=== PATIENT | female | born 1950 | race Caucasian/White ===

== ENCOUNTER → 2017-09-04 | Day surgery (SDC) | payer BC, MEDICARE ==
[2017-09-01 16:55] LABS: BASOPHILS # (AUTO) 0.1 (0.0-0.1); BASOPHILS % 0.7 % (0.0-1.0); EOSINOPHILS # (AUTO) 0.2 (0.0-0.4); EOSINOPHILS % 2.9 % (0.0-6.0); HEMOGLOBIN 13.4 g/dL (12.0-16.0); LYMPHOCYTES # (AUTO) 1.7 (1.0-3.2); MEAN CORPUSCULAR HEMOGLOBIN 30.9 pg (28-32); MEAN CORPUSCULAR HGB CONC 33.5 g/dL (31-35); MEAN CORPUSCULAR VOLUME 92.2 fL (81-99); MONOCYTES # (AUTO) 0.5 (0.2-0.8); MONOCYTES % 6.5 % (4.4-11.3); NEUTROPHILS # (AUTO) 5.8 (2.1-6.9); NEUTROPHILS % 69.8 % (38.7-80.0); PLATELET COUNT 210 x10e3/uL (140-360); RED BLOOD COUNT 4.34 x10e6/uL (3.6-5.1); RED CELL DISTRIBUTION WIDTH 13.3 % (11.7-14.4)
[2017-09-01 17:02] LABS: INR 0.97; PARTIAL THROMBOPLASTIN TIME 27.2 seconds (23.8-35.5); PROTHROMBIN TIME 12.1 seconds (11.9-14.5)
[2017-09-01 17:11] LABS: ALBUMIN 3.9 g/dL (3.5-5.0); ALBUMIN/GLOBULIN RATIO 1.3 (0.8-2.0); CALCIUM 9.4 mg/dL (8.4-10.2); CREATININE, SERUM 0.93 mg/dL (0.57-1.11)
--- NOTE | 2017-09-01 17:13 | Diagnostic Imaging Report ---
PROCEDURE: Frontal and lateral views of the chest. COMPARISON: [facility], , CHEST 2 VIEWS, 03/24/2016, 10:40. INDICATIONS: PRE-OP FINDINGS: Lines/tubes: None. Lungs: The lungs are well inflated and grossly clear. There is no evidence of pneumonia or pulmonary edema. Pleura: There is no pleural effusion or pneumothorax. Heart and mediastinum: The heart and the mediastinum are normal. Bones: No acute bony abnormality. IMPRESSION: 1. No acute cardiopulmonary abnormalities. Nathan Maria M.D. Dictated by: Nathan Maria M.D. on 09/01/2017 at 17:13 Electronically approved by: Nathan Maria M.D. on 09/01/2017 at 17:13
[~2017-09-04] MED LIST: AMBIEN5 MG PO; BACLOFEN10 MG PO; BACTRIM DS TAB1 EACH PO; BELSOMRA PO; CALTRATE 600 W1 EACH PO; CRESTOR10 MG PO; CYANOCOBAL1000 MCG/M IV; DEXAMETHASONE SOD PHOS INJ 4 MG/ML VIAL ONE; DUCOLAX PO; FAMOTIDINE 20 MG/2 ML VIAL IV ONE; FENTANYL CITRATE/PF 100MCG/2 ML INJ ONE; FISH OIL 1,0001 EAC1 PO; FUROSEMIDE20 MG PO; GABAPENTIN300 MG PO; GABAPENTIN400 MG PO; GEMFIBROZIL600 MG PO; INVOKANA PO; LIDOCAINE HCL 2% LOCAL INJ 5 ML SDV VIAL INJ ONE; LINESS PO; LINZESS PO; METFORMIN HCL500 MG PO; METOPROLOL TART25 MG PO; MIDAZOLAM HCL 2 MG/2 ML VIAL ONE; MORPHINE SULFATE 5 MG/ML VIAL ONE; NEOMYCIN/POLYMYX/BACITR OINT 0.9 GM PKT ONE; NITROGLYCERIN 0.4 MG SUBL ONE; NORCO 7.5-3251 EACH PO; NORTRIPTYLINE H10 MG PO; OMEPRAZOLE40 MG PO; ONDANSETRON HCL INJ 2 MG/ML VIAL ONE; PROMETHAZINE HC25 M1 PO; PROPOFOL IV EMULSION 10 MG/ML 20 ML VIAL ONE; SEVOFLURANE INHAL SOLN 250 ML PEN BTL ONE; SODIUM CHLORIDE 0.9% IV STA; STOOL SOFTENER PO; SULFAMETHOXAZOLE IV STA; TRIMETHOPRIM IV STA; ULTRAM 50MG50 MG PO; VALTREX500 MG PO; VITAMIN B-12 INJ
--- OUTSIDE RECORDS SUMMARY | 2017-09-04 10:56 | XMS REPORT | Clinical Summary ---
Author Author [facility] Organization [facility] Address Unknown Phone Unavailable Care Team Providers Care Fashion Merchandiser Name Role Phone Valarie Jack MD PCP Allergies Active Allergy Reactions Severity Noted Date Comments Prochlorperazine Other (See Comments) 05/05/2016 Loose the vision Fentanyl Other (See Comments) 06/03/2017 Palpitations anxiety Cephalexin Rash Low 05/05/2016 Levofloxacin Swelling 05/05/2016 Tramadol Hives 05/28/2017 Azithromycin Hives Medium 02/11/2017 Current Medications Prescription Sig. Disp. Refills Start End Date Status Date valACYclovir (VALTREX) Take 500 mg by mouth 04/29/20 Active 500 MG tablet daily. 16 omeprazole (PriLOSEC) 40 Take 40 mg by mouth 04/25/20 Active MG capsule daily. 16 nortriptyline (PAMELOR) Take 50 mg by mouth 04/28/20 Active 10 MG capsule nightly. 16 furosemide (LASIX) 20 MG Take 20 mg by mouth daily 03/22/20 Active tablet as needed (swelling). 16 rosuvastatin (CRESTOR) 10 Take 10 mg by mouth 04/25/20 Active MG tablet nightly. 16 baclofen (LIORESAL) 10 MG Take 20 mg by mouth 3 Active tablet (three) times a day as needed for muscle spasms. suvorexant (BELSOMRA) 20 Take 20 mg by mouth Active mg tablet nightly. cyanocobalamin (VITAMIN Inject 1,000 mcg into the Active B-12) 1,000 mcg/mL shoulder, thigh, or injection buttocks every 30 (thirty) days. LINZESS 290 mcg capsule Take 290 mcg by mouth 07/10/19 Active daily before breakfast. 17 gabapentin (NEURONTIN) Take 800 mg by mouth 3 08/25/19 Active 800 mg tablet (three) times a day as 17 needed (back pain). diclofenac (VOLTAREN) 1 % Apply topically 2 (two) 07/15/19 Active gel times a day as needed 17 (inflammation). INVOKANA 300 mg tablet Take 300 mg by mouth 11/05/19 Active daily. 17 fluconazole (DIFLUCAN) 12/14/19 Active 150 MG tablet 17 ONETOUCH ULTRASOFT 04/28/20 Active lancets 17 acetaminophen-codeine Take 1-2 tablets by mouth 15 tablet 0 05/28/20 05/28/20 Active (TYLENOL WITH CODEINE #3) every 6 (six) hours as 17 18 300-30 mg per tablet needed for moderate pain. celecoxib (CeleBREX) 200 Take 200 mg by mouth Active MG capsule daily. dicyclomine (BENTYL) 10 Take 10 mg by mouth 4 Active MG capsule (four) times a day before meals and nightly. gabapentin (NEURONTIN) 04/29/20 02/04/20 Discontin 300 MG capsule 16 17 ued traMADol (ULTRAM) 50 mg 03/03/20 02/04/20 Discontin tablet 16 17 ued metoprolol tartrate Take 25 mg by mouth 04/25/20 06/04/20 Discontin (LOPRESSOR) 25 MG tablet daily. 16 17 ued JANUVIA 100 mg tablet 05/01/20 02/04/20 Discontin 16 17 ued celecoxib (CeleBREX) 200 07/21/19 09/25/19 Discontin MG capsule 17 17 ued HYDROcodone-acetaminophen Take 1 tablet by mouth 60 tablet 0 08/13/19 09/11/19 (NORCO) 5-325 mg per every 6 (six) hours as 17 17 tablet needed for moderate pain for up to 80 doses. Max Daily Amount: 4 tablets acetaminophen-codeine 09/06/19 09/25/19 Discontin (TYLENOL WITH CODEINE #4) 17 17 ued 300-60 mg per tablet celecoxib (CeleBREX) 200 Take 1 capsule (200 mg 30 capsule 1 09/25/19 10/25/19 MG capsule total) by mouth daily for 17 17 30 doses. HYDROcodone-acetaminophen Take 1 tablet by mouth 09/25/19 10/10/19 Discontin (NORCO) 7.5-325 mg per every 6 (six) hours as 17 17 ued tablet needed for moderate pain for up to 80 doses. Max Daily Amount: 4 tablets HYDROcodone-acetaminophen 10/02/19 02/04/20 Discontin (NORCO) 10-325 mg per 17 17 ued tablet nystatin-triamcinolone 12/14/19 02/12/20 Discontin (MYCOLOG II) 100,000-0.1 17 17 ued unit/g-% cream promethazine (PHENERGAN) 25 mg every 6 (six) hours 01/21/20 06/04/20 Discontin 25 MG tablet as needed for nausea 17 17 ued (with vertigo). sulfamethoxazole-trimetho 12/12/19 02/12/20 Discontin prim (BACTRIM DS) 800-160 17 17 ued mg per tablet clindamycin (CLEOCIN HCL) Take 1 capsule (300 mg 40 capsule 0 02/25/20 Discontin 300 MG capsule total) by mouth 4 (four) 17 17 ued times a day for 10 days. sulfamethoxazole-trimetho Take 1 tablet by mouth 2 10 tablet 0 03/01/20 prim (BACTRIM DS) 800-160 (two) times a day for 5 17 17 mg per tablet days. smx-tmp DS (BACTRIM) 800-160 mg tabs (1tab q12 D10) HYDROcodone-acetaminophen 03/10/20 04/03/20 Discontin (NORCO) 10-325 mg per 17 17 ued tablet oxyCODone-acetaminophen TK 1 TO 2 TS PO Q 4 TO 6 0 03/09/20 05/05/20 Discontin (PERCOCET) 5-325 mg per H PRN P 17 17 ued tablet oxyCODone-acetaminophen Take 1 tablet by mouth 06/04/20 Discontin (PERCOCET) 5-325 mg per every 4 (four) hours as 17 ued tablet needed for moderate pain. lisinopril Take 1 tablet (2.5 mg 30 tablet 3 06/05/20 07/05/19 (PRINIVIL,ZESTRIL) 2.5 mg total) by mouth daily for 17 18 tablet 30 days. metoprolol tartrate Take 1 tablet (25 mg 60 tablet 3 06/04/20 Discontin (LOPRESSOR) 25 mg tablet total) by mouth 2 (two) 17 17 ued times a day for 30 days. spironolactone Take 1 tablet (25 mg 60 tablet 1 06/04/20 06/04/20 Discontin (ALDACTONE) 25 MG tablet total) by mouth 2 (two) 17 17 ued times a day for 30 days. ipratropium-albuterol Inhale 2 puffs every 4 4 g 0 06/04/20 (COMBIVENT RESPIMAT) (four) hours as needed 17 18 20-100 mcg/actuation mist for wheezing for up to 30 inhaler days. metoprolol tartrate Take 0.5 tablets (12.5 mg 60 tablet 3 06/04/20 07/04/19 (LOPRESSOR) 25 mg tablet total) by mouth 2 (two) 17 18 times a day for 30 days. spironolactone Take 0.5 tablets (12.5 mg 60 tablet 1 06/04/20 (ALDACTONE) 25 MG tablet total) by mouth 2 (two) 17 18 times a day for 30 days. Active Problems Problem Noted Date Accidental overdose 05/31/2017 Trigger finger, right ring finger 02/03/2017 Status post arthroscopy of left knee 10/09/2016 Status post total right knee replacement using cement 07/18/2016 Chronic pain of left knee 05/05/2016 Resolved Problems Problem Noted Date Resolved Date Trigger finger of left thumb 02/03/2017 05/05/2017 Encounters Date Type Specialty Care Team Description 06/01/2017 Procedure Pass General Internal Medicine 06/01/2017 Procedure Pass General Internal Medicine 06/01/2017 Procedure Pass Procedural Cardiology 06/01/2017 Surgery Procedural Cardiology Kelly Oneal MD Cv left heart cath w lv gram cors [73881 (CPT )] 05/31/2017 [facility] General Internal Medicine Pranay Nealrandee Edge, Accidental overdose, - Encounter DO initial encounter 06/04/2017 Lisa Hassan MD (Primary Dx); Acute respiratory failure, unspecified whether with hypoxia or hypercapnia 05/28/2017 Emergency Emergency Medicine Kyle Ni MD Back pain with sciatica (Primary Dx) 05/05/2017 Office Visit Orthopedic Surgery Shelby Alvarenga Trigger finger, right MD Amy ring finger (Primary Dx) 04/03/2017 Office Visit Orthopedic Surgery Shelby Alvarenga Trigger finger, right MD Amy ring finger (Primary Dx) 03/18/2017 Office Visit Orthopedic Surgery Shelby Alvarenga Trigger finger, right MD Amy ring finger (Primary Dx) 03/10/2017 Telephone Orthopedic Surgery Shelby Alvarenga MD 03/09/2017 [facility] General Surgery Shelby Alvarenga Encounter MD Amy 03/09/2017 Anesthesia General Surgery Jeanine Barragan MD Event 03/09/2017 Procedure Pass General Surgery 03/09/2017 Surgery General Surgery Shelby Alvarenga PARTIAL EXCISION FLEXOR MD Amy TENDON RING FINGER-RIGHT 03/03/2017 Office Visit Orthopedic Surgery Shelby Alvarenga Trigger finger, right MD Amy ring finger (Primary Dx) 02/24/2017 Emergency Emergency Medicine Anne Marie Montoya MD Visit for suture removal (Primary Dx); Cellulitis of hand 02/17/2017 Refill Orthopedic Surgery Shelby Alvarenga MD 02/17/2017 Telephone Orthopedic Surgery Shelby Alvarenga MD 02/16/2017 [facility] General Surgery Shelby Alvarenga Encounter MD Amy 02/16/2017 Anesthesia General Surgery Tisha Drake MD 02/16/2017 Procedure Pass General Surgery 02/16/2017 Surgery General Surgery Shelby Alvarenga RING FINGER A-1 GRACIA MD Amy RELEASE-RIGHT THUMB A-1 GRACIA RELEASE-LEFT 02/11/2017 Hospital Radiology Shelby Alvarenga Preop testing Encounter MD Amy 02/11/2017 Pre-Admit Pre-Admission Testing Preop testing (Primary Testing Dx) Appointment 02/03/2017 Office Visit Orthopedic Surgery Shelby Alvarenga Left hand pain (Primary MD Amy Dx); Trigger finger of left thumb; Trigger finger, right ring finger 11/26/2016 Office Visit Orthopedic Surgery Gennaro Kamara MD Status post arthroscopy of left knee (Primary Dx) 10/27/2016 Office Visit Orthopedic Surgery Gennaro Kamara MD Status post arthroscopy of left knee (Primary Dx) 10/09/2016 Office Visit Orthopedic Surgery Gennaro Kamara MD Status post total right knee replacement using cement (Primary Dx); Status post arthroscopy of left knee 10/01/2016 [facility] General Surgery Gennaro Kamara MD Encounter 09/29/2016 Orders Only General Surgery Gennaro Kamara MD 09/25/2016 Office Visit Orthopedic Surgery Gennaro Kamara MD Status post total right knee replacement using cement (Primary Dx) 09/25/2016 Prep for Orthopedic Surgery Gennaro Kamara MD Surgery 09/24/2016 Orders Only Orthopedic Surgery Gennaro Kamara MD 09/12/2016 Office Visit Orthopedic Surgery Gennaro Kamara MD Chronic pain of left knee (Primary Dx); Status post total right knee replacement using cement 09/10/2016 [facility] Radiology Gennaro Kamara MD Encounter 09/08/2016 Office Visit Orthopedic Surgery Gennaro Kamara MD Status post total right knee replacement using cement (Primary Dx); Chronic pain of left knee after 09/03/2016 Family History Medical History Relation Name Comments Cancer Father Stroke Mother Relation Name Status Comments Father Mother Social History Tobacco Use Types Packs/Day Years Used Date Former Smoker Cigarettes 0.5 15 Smokeless Tobacco: Former Quit: 2012 User Alcohol Use Drinks/Week oz/Week Comments No Sex Assigned at Date Recorded Not on file Last Filed Vital Signs Vital Sign Reading Time Taken Blood Pressure 107/60 06/04/2017 10:51 AM [employer] Pulse 96 06/04/2017 10:51 AM [employer]IC[employer] Temperature 36.1 C (96.9 F) 06/04/2017 7:06 AM [employer] OFFICER Respiratory Rate 19 06/04/2017 10:51 AM [employer] ACT OFFICER Oxygen Saturation 95% 06/04/2017 10:51 AM [employer] ACT OFFICER Inhaled Oxygen - - Concentration Weight 90.3 kg (199 lb 1.2 oz) 06/01/2017 12:45 AM [employer]ICER Height 165.1 cm (5' 5") 05/31/2017 8:34 PM [employer] ACT OFFICER Body Mass Index 33.13 06/01/2017 12:45 AM [employer]ITY [employer]MENT ACT OFFICER Plan of Treatment Health Maintenance Due Date Last Done Comments COLONOSCOPY 2000 ZOSTER VACCINE 2010 PNEUMOCOCCAL 10/25/2015 POLYSACCHARIDE VACCINE AGE 65 AND OVER PNEUMOCOCCAL-13 10/25/2015 INFLUENZA VACCINE 01/27/2017 MAMMOGRAM 04/19/2017 04/19/2015, 01/04/2010, 05/19/2008 Implants Implanted Type Area Head Men[employer]S Tennis Coach Device Expiration Model / Identifier Date Serial / Lot Device Vasclr Clsr Baln Cath 10ml Cardiovasc N/A: N/A ACCESS CLOSURE 02/26/2019 [id number] / Lkng Syr 5fr [employer] / [id number] Implants [id number] Implanted: 06/01/2017 (Quantity not on file) Procedures Procedure Name Priority Date/Time Associated Diagnosis Comments CV LEFT HEART CATH LV Routine 06/01/2017 GRAM WITH CORS 5:19 AM COMMUNITY RE[employer]MENT ACT OFFICER MA CRITICAL CARE, E/M Routine 06/01/2017 Results for this 30-74 MINUTES 12:22 AM COMM[employer]ITY RE[employer]MENT ACT OFFICER procedure are in the results section. INTUBATION Routine 06/01/2017 Results for this 12:22 AM COMM[employer]ITY [employer]MENT ACT OFFICER procedure are in the results section. PARTIAL EXCISION FLEXOR 03/09/2017 Trigger finger, right TENDON RING FINGER-RIGHT 9:35 AM CDT ring finger Special Needs HAND TABLE26 JOSÉ WIREHAND & FOOT SETPRE OP DONE 02/11 SUTURE REMOVAL Routine 02/24/2017 Results for this 2:16 PM CDT procedure are in the results section. SUTURE REMOVAL Routine 02/24/2017 Results for this 2:16 PM CDT procedure are in the results section. RING FINGER A-1 GRACIA 02/16/2017 Trigger finger of left RELEASE-RIGHT THUMB A-1 8:15 AM CDT thumb GRACIA RELEASE-LEFT Special Needs HAND TABLEBMI:3 4.91 after 09/03/2016 Results * Estimated GFR (06/04/2017 12:17 PM) Only the most recent of 9 results within the time period is included. Component Value Ref Range GFR Non Af Amer 72 mL/min/1.73 m2 GFR Af Amer 87 mL/min/1.73 m2 Comment: Chronic kidney disease: <60 mL/min/1.73m2 Kidney failure: <15 mL/min/1.73m2 The estimated GFR is calculated from the IDMS-traceable Modification of Diet in Renal Disease Equation. The accuracy of the calculation is poor when the creatinine is normal. Calculated values >90 mL/min/1.73m2 are not reported. This equation has not been validated in children (<18 years), women, the elderly (>70 years), or ethnic groups other than Caucasians and Americans. Specimen Performing Laboratory Plasma specimen [facility] [address] [place] [address] * Magnesium level (06/04/2017 12:17 PM) Only the most recent of 4 results within the time period is included. Component Value Ref Range Magnesium 2.00 1.60 - 2.40 mg/dL Specimen Performing Laboratory Plasma specimen [facility] [address] [place] [id number] * Basic metabolic panel (06/04/2017 12:17 PM) Only the most recent of 2 results within the time period is included. Component Value Ref Range Sodium 139 135 - 150 mEq/L Potassium 3.8 3.5 - 5.0 mEq/L Chloride 103 100 - 109 mEq/L CO2 27 24 - 32 mmol/L Anion gap 9 7 - 15 mEq/L Comment: Starting from September , anion gap calculation no longer incorporates potassium. Please note the change. BUN 28 (H) 7 - 18 mg/dL Creatinine 0.8 0.8 - 1.5 mg/dL Glucose 113 (H) 65 - 100 mg/dL Calcium 9.4 8.6 - 10.7 mg/dL Specimen Performing Laboratory Plasma specimen [facility] [address] [place] [address] * POC glucose (06/04/2017 11:15 AM) Only the most recent of 22 results within the time period is included. Component Value Ref Range POC glucose 145 (H) 65 - 100 mg/dL Comment: Meter ID: [id number] Balloon Sander: Rasheeda Palacios Specimen Performing Laboratory [facility] [address] [place] [address] * Phosphorus level (06/04/2017 6:45 AM) Only the most recent of 4 results within the time period is included. Component Value Ref Range Phosphorus 3.4 2.5 - 4.5 mg/dL Specimen Performing Laboratory Plasma specimen [facility] [address] [place] [address] * Ionized calcium (06/04/2017 6:45 AM) Only the most recent of 4 results within the time period is included. Component Value Ref Range pH 7.44 Ionized calcium 1.16 1.11 - 1.32 mmol/L Specimen Performing Laboratory Plasma specimen [facility] [address] [place] [address] * Smear review (06/03/2017 5:16 AM) Only the most recent of 3 results within the time period is included. Component Value Ref Range Platelet slide review Dino adequate Anisocytosis slight Polychromasia slight Ovalocytes slight Specimen Performing Laboratory [facility] [address] [place] [address] * CBC with platelet and differential (06/03/2017 5:16 AM) Only the most recent of 8 results within the time period is included. Component Value Ref Range WBC 8.6 4.2 - 11.0 k/uL RBC 4.44 4.04 - 5.86 m/uL HGB 13.2 11.5 - 15.3 g/dL HCT 40.8 34.0 - 45.0 % MCV 91.9 80.0 - 98.0 fL MCH 29.7 27.0 - 34.0 pg MCHC 32.4 31.5 - 36.5 g/dL RDW - SD 49.6 37.0 - 51.0 fL MPV 10.5 (H) 7.4 - 10.4 fL Platelet count 163 150 - 400 k/uL Nucleated RBC 0.00 /100 WBC Neutrophils 67.6 (H) 36.0 - 66.0 % Lymphocytes 21.5 (L) 24.0 - 44.0 % Monocytes 8.5 (H) 0.0 - 6.0 % Eosinophils 1.2 0.0 - 6.0 % Basophils 0.7 0.0 - 1.2 % Immature granulocytes 0.5 0.0 - 1.0 % Specimen Performing Laboratory Blood [facility] [address] [place] [address] * Hepatic function panel (06/03/2017 5:16 AM) Component Value Ref Range Albumin 3.3 3.2 - 5.0 g/dL Total bilirubin 0.7 0.2 - 1.2 mg/dL Bilirubin direct 0.1 0.0 - 0.4 mg/dL Alkaline phosphatase 95 30 - 120 U/L Protein 6.7 6.3 - 8.2 g/dL ALT 44 30 - 65 U/L AST 41 (H) 15 - 37 U/L Specimen Performing Laboratory Plasma specimen [facility] [address] [place] [address] * PV duplex venous upper extremity (06/02/2017 5:57 PM) Specimen Performing Laboratory [facility] [address] [place] [address] Narrative EXAMINATION:US DUPLEX VENOUS UPPER EXTREMITY LEFT CLINICAL HISTORY:pain and swelling COMPARISON:None. TECHNIQUE:Grayscale, color Doppler, and spectral waveform analysis of the left upper extremity deep venous system was performed. FINDINGS: The left internal jugular vein demonstrates normal flow and compressibility. The left subclavian, axillary, brachial, basilic, cephalic, and forearm veins reveal no evidence of thrombosis. The veins demonstrate normal Doppler flow and normal compressibility. The right subclavian vein is patent. IMPRESSION: Normal left upper extremity venous Doppler examination. No sonographic evidence of deep venous thrombosis of the left upper extremity. [id number] Procedure Note Hm Interface, Radiology Results Incoming - 06/02/2017 6:08 PM [employer] ACT OFFICER EXAMINATION: US DUPLEX VENOUS UPPER EXTREMITY LEFT CLINICAL HISTORY: pain and swelling COMPARISON: None. TECHNIQUE: Grayscale, color Doppler, and spectral waveform analysis of the left upper extremity deep venous system was performed. FINDINGS: The left internal jugular vein demonstrates normal flow and compressibility. The left subclavian, axillary, brachial, basilic, cephalic, and forearm veins reveal no evidence of thrombosis. The veins demonstrate normal Doppler flow and normal compressibility. The right subclavian vein is patent. IMPRESSION: Normal left upper extremity venous Doppler examination. No sonographic evidence of deep venous thrombosis of the left upper extremity. [id number] * Comprehensive metabolic panel (06/02/2017 4:34 AM) Only the most recent of 7 results within the time period is included. Component Value Ref Range Sodium 140 135 - 150 mEq/L Potassium 3.5 3.5 - 5.0 mEq/L Chloride 100 100 - 109 mEq/L CO2 34 (H) 24 - 32 mmol/L Anion gap 6 (L) 7 - 15 mEq/L Comment: Starting from September , anion gap calculation no longer incorporates potassium. Please note the change. BUN 20 (H) 7 - 18 mg/dL Creatinine 0.8 0.8 - 1.5 mg/dL Glucose 116 (H) 65 - 100 mg/dL Calcium 8.8 8.6 - 10.7 mg/dL Protein 6.5 6.3 - 8.2 g/dL Albumin 3.3 3.2 - 5.0 g/dL A/G ratio 1.0 0.7 - 3.8 Alkaline phosphatase 93 30 - 120 U/L AST 44 (H) 15 - 37 U/L ALT 36 30 - 65 U/L Total bilirubin 0.4 0.2 - 1.2 mg/dL Specimen Performing Laboratory Plasma specimen [facility] [address] [place] [address] * CTA Neck W Wo Contrast (06/01/2017 7:03 PM) Specimen Performing Laboratory [facility] [address] [place] [address] Narrative EXAMINATION:CT ANGIOGRAM NECK W WO CONTRAST INCLUDING 3-D MIP RECONSTRUCTED IMAGING. CT IMAGING WAS PERFORMED WITH ITERATIVE RECONSTRUCTION TECHNIQUE AND/OR AUTOMATED EXPOSURE CONTROL TO REDUCE RADIATION DOSE. CLINICAL HISTORY:Left hemiparesis COMPARISON:None. FINDINGS: 1. There is no significant abnormality demonstrated in the brachiocephalic vasculature. 2.There is no significant abnormality demonstrated in the carotid arteries. 3.The vertebral arteries are symmetric in size. There is no significant abnormality demonstrated in the cervical vertebral arteries. IMPRESSION: No significant abnormality. [id number] Procedure Note Interface, Radiology Results [facility] - 06/01/2017 7:34 PM [employer]ITY [employer]MENT ACT OFFICER EXAMINATION: CT ANGIOGRAM NECK W WO CONTRAST INCLUDING 3-D MIP RECONSTRUCTED IMAGING. CT IMAGING WAS PERFORMED WITH ITERATIVE RECONSTRUCTION TECHNIQUE AND/OR AUTOMATED EXPOSURE CONTROL TO REDUCE RADIATION DOSE. CLINICAL HISTORY: Left hemiparesis COMPARISON: None. FINDINGS: 1. There is no significant abnormality demonstrated in the brachiocephalic vasculature. 2. There is no significant abnormality demonstrated in the carotid arteries. 3. The vertebral arteries are symmetric in size. There is no significant abnormality demonstrated in the cervical vertebral arteries. IMPRESSION: No significant abnormality. [id number] * MRI Cervical Spine Wo Contrast (06/01/2017 6:54 PM) Specimen Performing Laboratory [facility] [address] [place] [address] Narrative EXAMINATION: MRI CERVICAL SPINE WO CONTRAST CLINICAL HISTORY: L weakness COMPARISON:Cervical CT 06/01/2017 TECHNIQUE: Multiplanar multisequence noncontrast enhanced examination was performed of the cervical spine. FINDINGS: The vertebral bodies are normal in signal and morphology. No fracture, infection , or neoplasm. The paravertebral and paraspinous soft tissues are normal. Cord is normal in signal and morphology throughout. There are no epidural collections or intradural/epidural masses. Degenerative changes: Multilevel disc desiccation, with mild disc height loss from C3 through C6 C7. Alignment is maintained. Axial images through the disc spaces demonstrate the following: C1-C2: The atlantoaxial interval is intact with no significant disease or stenosis. C2-C3: No significant posterior disc disease, spinal canal or neural foraminal stenosis. C3-C4: Degenerative disc protrusion with uncovertebral arthropathy, contributing to mild central stenosis and moderate bilateral foraminal stenosis. C4-C5: Small disc bulge minimally indents the ventral thecal sac. The neural foramina are patent. C5-C6: Degenerative disc osteophyte complex with uncovertebral arthropathy, resulting in mild central stenosis and in moderate right greater than left foraminal stenosis. C6-C7: Degenerative disc osteophyte complex results in mild central stenosis and mild to moderate bilateral foraminal stenosis. C7-T1: No significant posterior disc disease, spinal canal or neural foraminal stenosis. No significant posterior disc disease, spinal canal or neural foraminal stenosis at other visualized levels. IMPRESSION: No acute cervical abnormality. Degenerative changes from C3 through C7 results in mild multilevel central stenosis and the multilevel bilateral foraminal stenosis which is moderate at C3 -C4, C5-C6, and C6-C7. [id number] Procedure Note [facility], Radiology Results Incoming - 06/01/2017 7:11 PM [employer]ITY [employer]MENT ACT OFFICER EXAMINATION: MRI CERVICAL SPINE WO CONTRAST CLINICAL HISTORY: L weakness COMPARISON: Cervical CT 06/01/2017 TECHNIQUE: Multiplanar multisequence noncontrast enhanced examination was performed of the cervical spine. FINDINGS: The vertebral bodies are normal in signal and morphology. No fracture, infection , or neoplasm. The paravertebral and paraspinous soft tissues are normal. Cord is normal in signal and morphology throughout. There are no epidural collections or intradural/epidural masses. Degenerative changes: Multilevel disc desiccation, with mild disc height loss from C3 through C6 C7. Alignment is maintained. Axial images through the disc spaces demonstrate the following: C1-C2: The atlantoaxial interval is intact with no significant disease or stenosis. C2-C3: No significant posterior disc disease, spinal canal or neural foraminal stenosis. C3-C4: Degenerative disc protrusion with uncovertebral arthropathy, contributing to mild central stenosis and moderate bilateral foraminal stenosis. C4-C5: Small disc bulge minimally indents the ventral thecal sac. The neural foramina are patent. C5-C6: Degenerative disc osteophyte complex with uncovertebral arthropathy, resulting in mild central stenosis and in moderate right greater than left foraminal stenosis. C6-C7: Degenerative disc osteophyte complex results in mild central stenosis and mild to moderate bilateral foraminal stenosis. C7-T1: No significant posterior disc disease, spinal canal or neural foraminal stenosis. No significant posterior disc disease, spinal canal or neural foraminal stenosis at other visualized levels. IMPRESSION: No acute cervical abnormality. Degenerative changes from C3 through C7 results in mild multilevel central stenosis and the multilevel bilateral foraminal stenosis which is moderate at C3 -C4, C5-C6, and C6-C7. [facility]-[id number] * CTA Head W Wo Contrast (06/01/2017 6:45 PM) Specimen Performing [facility] [address] [place] [address] Narrative EXAMINATION: CT ANGIOGRAM HEAD W WO CONTRAST CLINICAL HISTORY: Left hemiparesis COMPARISON:None TECHNIQUE:Imaging of the intracranial circulation was obtained from the skull base to the vertex during the arterial phase of enhancement. Postprocessing was performed with MIP multiplanar and 3D reconstructed images. CT scans are performed using radiation dose reduction techniques. Technical factors are evaluated and adjusted to ensure appropriate moderation of exposure. Automated dose management technology is applied to adjust radiation exposure while achieving a diagnostic quality image. FINDINGS: No hemodynamically significant stenosis is identified of the intracranial internal carotid arteries, middle cerebral arteries, anterior cerebral arteries , intracranial vertebral arteries, basilar artery or posterior cerebral arteries. There is no aneurysmal dilatation or vascular malformation of the [place]. The major dural sinuses are opacified normally. IMPRESSION: No hemodynamically significant narrowing of the [place] vessels. [facility]-[id number] Procedure Note Interface, Radiology Results Incoming - 06/01/2017 7:57 PM COMMUNITY REINVESTMENT ACT OFFICER EXAMINATION: CT ANGIOGRAM HEAD W WO CONTRAST CLINICAL HISTORY: Left hemiparesis COMPARISON: None TECHNIQUE: Imaging of the intracranial circulation was obtained from the skull base to the vertex during the arterial phase of enhancement. Postprocessing was performed with MIP multiplanar and 3D reconstructed images. CT scans are performed using radiation dose reduction techniques. Technical factors are evaluated and adjusted to ensure appropriate moderation of exposure. Automated dose management technology is applied to adjust radiation exposure while achieving a diagnostic quality image. FINDINGS: No hemodynamically significant stenosis is identified of the intracranial internal carotid arteries, middle cerebral arteries, anterior cerebral arteries , intracranial vertebral arteries, basilar artery or posterior cerebral arteries. There is no aneurysmal dilatation or vascular malformation of the [place]. The major dural sinuses are opacified normally. IMPRESSION: No hemodynamically significant narrowing of the [place] vessels. [facility]-[id number] * CT Cervical Spine Wo Contrast (06/01/2017 6:40 PM) Specimen Performing Laboratory [facility] [address] [facility] [place] [address] Narrative EXAMINATION: CT CERVICAL SPINE WO CONTRAST CLINICAL HISTORY: left arm weakness COMPARISON:Cervical MRI 06/01/2017 TECHNIQUE: Noncontrast enhanced imaging through the cervical spine was performed with coronal and sagittal reconstructed images. CT scans are performed using radiation dose reduction techniques (iterative reconstruction and/or automated exposure control). Technical factors are evaluated and adjusted to ensure appropriate moderation of exposure. Automated dose management technology is applied to adjust radiation exposure while achieving a diagnostic quality image. FINDINGS: Cervical lordosis is maintained.No acute fractures or subluxations.No soft tissue abnormalities are seen. Degenerative changes: Multilevel degenerative disc changes which are greatest at C5-6 and C6-7. Posterior disc osteophytes contribute to mild central stenosis at these levels. Multilevel facet and uncovertebral arthropathy, contribute to foraminal stenosis which is moderate at C3-C4 bilaterally, severe right and mild left at C5-C6, and mild bilaterally C6-C7. IMPRESSION: No acute osseous abnormality of the cervical spine. There are mild degenerative changes detailed above, most significantly severe foraminal stenosis on the right at C5-C6. [facility]-[id number] Procedure Note Interface, Radiology Results [facility] - 06/01/2017 7:14 PM COMMUNITY REINVESTMENT ACT OFFICER EXAMINATION: CT CERVICAL SPINE WO CONTRAST CLINICAL HISTORY: left arm weakness COMPARISON: Cervical MRI 06/01/2017 TECHNIQUE: Noncontrast enhanced imaging through the cervical spine was performed with coronal and sagittal reconstructed images. CT scans are performed using radiation dose reduction techniques (iterative reconstruction and/or automated exposure control). Technical factors are evaluated and adjusted to ensure appropriate moderation of exposure. Automated dose management technology is applied to adjust radiation exposure while achieving a diagnostic quality image. FINDINGS: Cervical lordosis is maintained. No acute fractures or subluxations. No soft tissue abnormalities are seen. Degenerative changes: Multilevel degenerative disc changes which are greatest at C5-6 and C6-7. Posterior disc osteophytes contribute to mild central stenosis at these levels. Multilevel facet and uncovertebral arthropathy, contribute to foraminal stenosis which is moderate at C3-C4 bilaterally, severe right and mild left at C5-C6, and mild bilaterally C6-C7. IMPRESSION: No acute osseous abnormality of the cervical spine. There are mild degenerative changes detailed above, most significantly severe foraminal stenosis on the right at C5-C6. [facility]-[id number] * ECG 12 lead (06/01/2017 5:57 PM) Only the most recent of 8 results within the time period is included. Component Value Ref Range Ventricular rate 118 Atrial rate 118 MA interval 146 QRSD interval 90 QT interval 338 QTC interval 473 P axis 1 51 QRS axis 1 -12 T wave axis 39 EKG impression Sinus tachycardia-Low voltage QRS-Possible Anterolateral infarct , age undetermined-Abnormal ECG-In automated comparison with ECG of 01-JUN-2017 12:13,-Borderline criteria for Anterolateral infarct are now present- Specimen Performing Laboratory [facility] [address] [place] [address] * Troponin (06/01/2017 5:55 PM) Only the most recent of 6 results within the time period is included. Component Value Ref Range Troponin 3.75 (HH) 0.00 - 0.60 ng/mL Comment: 0.11 - 1.49 ng/ml May indicate increased risk of acute coronary syndrome. >=1.5 ng/ml Consistent with acute myocardial infarction. The diagnostic value of a single normal or non-diagnostic result is questionable. Serial samples at 2-6 hour intervals are required to rule out acute myocardial injury. Results called to and read back by CURRY BAIRD 18:48 06/01/2017 [facility] Specimen Performing Laboratory Plasma specimen [facility] [address] [place] [address] * Creatine kinase, total (CPK) (06/01/2017 5:55 PM) Only the most recent of 5 results within the time period is included. Component Value Ref Range Creatine kinase 320 (H) 61 - 224 U/L Specimen Performing Laboratory Plasma specimen [facility]OM[facility]IC[facility] [address] [place] [address] * CT Head Wo Contrast (06/01/2017 11:18 AM) Only the most recent of 2 results within the time period is included. Specimen Performing Laboratory [facility] [address] [place] [address] Narrative Procedure:CT HEAD WO CONTRAST REFERRING PHYSICIAN:CHEPE RODRIGUEZ HISTORY:STROKE, r o stroke COMPARISON: 05/31/2017 TECHNIQUE: Axial images were obtained of the head without intravenous contrast. All CT scan performed using radiation dose reduction techniques. Technical factors are evaluated and adjusted to ensure appropriate moderation of exposure. Automated dose management technology is applied to adjust the radiation dose to minimize expose whileachieving a diagnostic quality image. FINDINGS: Perez-white matter differentiation is maintained. The ventricular system is symmetric and midline. Mild chronic ischemic small vessel white matter disease is seen. There is no evidence of acute hemorrhage. Nointra-axial or extra-axial lesion is seen. The visualized portion of the orbits, paranasal sinuses and mastoid air cells are unremarkable. The calvarium is intact. IMPRESSION: Stable CT head exam with no CT evidence of acute intracranial abnormality or hemorrhage. [facility]-[id number] Procedure Note Interface, Radiology Results Incoming - 06/01/2017 11:24 AM COMMUNITY REINVESTMENT ACT OFFICER Procedure:CT HEAD WO CONTRAST REFERRING PHYSICIAN:CHEPE RODRIGUEZ HISTORY: STROKE, r o stroke COMPARISON: 05/31/2017 TECHNIQUE: Axial images were obtained of the head without intravenous contrast. All CT scan performed using radiation dose reduction techniques. Technical factors are evaluated and adjusted to ensure appropriate moderation of exposure. Automated dose management technology is applied to adjust the radiation dose to minimize expose while achieving a diagnostic quality image. FINDINGS: Perez-white matter differentiation is maintained. The ventricular system is symmetric and midline. Mild chronic ischemic small vessel white matter disease is seen. There is no evidence of acute hemorrhage. No intra-axial or extra-axial lesion is seen. The visualized portion of the orbits, paranasal sinuses and mastoid air cells are unremarkable. The calvarium is intact. IMPRESSION: Stable CT head exam with no CT evidence of acute intracranial abnormality or hemorrhage. [facility]-[id number] * MRI Brain Wo Contrast (06/01/2017 11:00 AM) Specimen Performing Laboratory [facility] [address] [place] [address] Narrative EXAMINATION:MRI BRAIN WO CONTRAST CLINICAL HISTORY:PARESTHESIAFACIAL COMPARISON:None. Technique: Multiplanar and multisequence MRI images of the brain are obtained without the use of ionic intravenous contrast. Sagittal axial and coronal images are obtained. Diffusion weighted sequences are performed. No intravenous contrast was given. Findings: Diffusion weighted images demonstrates no evidence of any acute infarction. The visualized paranasal sinuses demonstrate mild ethmoid sinusitis.The globes and optic nerves are unremarkable. The posterior fossa does not demonstrate any masses. The shakeel and midbrain did not demonstrate any masses. The ventricles are symmetrical without any mass effect. There is no evidence of any midline shift. There is no extra-axial fluid collection. The cerebral hemispheres demonstrate no intracranial hemorrhage or mass lesion. Periventricular ischemic white matter changes are present. The sella turcica is not enlarged. Visualized portion of the upper cervical cord demonstrates no abnormality. IMPRESSION: 1.No acute intracranial abnormalities or mass lesions. 2. There are mild periventricular ischemic white matter changes present. [id number] Procedure Note Hm Interface, Radiology Results Incoming - 06/01/2017 11:09 AM COMMUNITY REINVESTMENT ACT OFFICER EXAMINATION: MRI BRAIN WO CONTRAST CLINICAL HISTORY: PARESTHESIA FACIAL COMPARISON: None. Technique: Multiplanar and multisequence MRI images of the brain are obtained without the use of ionic intravenous contrast. Sagittal axial and coronal images are obtained. Diffusion weighted sequences are performed. No intravenous contrast was given. Findings: Diffusion weighted images demonstrates no evidence of any acute infarction. The visualized paranasal sinuses demonstrate mild ethmoid sinusitis. The globes and optic nerves are unremarkable. The posterior fossa does not demonstrate any masses. The shakeel and midbrain did not demonstrate any masses. The ventricles are symmetrical without any mass effect. There is no evidence of any midline shift. There is no extra-axial fluid collection. The cerebral hemispheres demonstrate no intracranial hemorrhage or mass lesion. Periventricular ischemic white matter changes are present. The sella turcica is not enlarged. Visualized portion of the upper cervical cord demonstrates no abnormality. IMPRESSION: 1. No acute intracranial abnormalities or mass lesions. 2. There are mild periventricular ischemic white matter changes present. [id number] * Partial thromboplastin time, activated (06/01/2017 8:31 AM) Only the most recent of 4 results within the time period is included. Component Value Ref Range PTT 27.3 23.0 - 36.0 sec Comment: PTT therapeutic range for unfractionated heparin is 61.0-112.0 seconds which corresponds to Anti-Xa 0.3-0.7 U/ml. Note: Change in Panic Value The PTT Panic Value is changing from 110 sec. to 100 sec. due to new instrumentation and reagents. Correlation studies have been performed to validate this result. Specimen Performing Laboratory Blood [facility]IC[facility] [address] [place] [address] * XR Chest 1 Vw Portable (06/01/2017 6:43 AM) Only the most recent of 2 results within the time period is included. Specimen Performing Laboratory [facility] [address] [place] [address] Narrative EXAMINATION:XR CHEST 1 VW PORTABLE CLINICAL HISTORY:Ventilator Patient XR CHEST 1 VW PORTABLEimages are submitted COMPARISON:05/31/2017 FINDINGS: The endotracheal tube has a tip several centimeters above the west. A nasogastric tube extends into the stomach. Cardiac silhouette is enlarged. There is minimal atelectasis seen at the lower lung bases with elevation of the right hemidiaphragm. The upper lung zones remain clear. IMPRESSION: 1. The support structures are in the appropriate positions. 2. There is minimal change in the appearance of the chest since prior study. [id number] Procedure Note Interface, Radiology Results Incoming - 06/01/2017 6:49 AM COMMUNITY REINVESTMENT ACT OFFICER EXAMINATION: XR CHEST 1 VW PORTABLE CLINICAL HISTORY: Ventilator Patient XR CHEST 1 VW PORTABLE images are submitted COMPARISON: 05/31/2017 FINDINGS: The endotracheal tube has a tip several centimeters above the west. A nasogastric tube extends into the stomach. Cardiac silhouette is enlarged. There is minimal atelectasis seen at the lower lung bases with elevation of the right hemidiaphragm. The upper lung zones remain clear. IMPRESSION: 1. The support structures are in the appropriate positions. 2. There is minimal change in the appearance of the chest since prior study. [facility]-[id number] * Cv general production laborer procedure (06/01/2017 5:19 AM) Specimen Performing Laboratory [facility] [address] [place] [address] * B natriuretic peptide (06/01/2017 4:00 AM) Component Value Ref Range BNP 34 0 - 100 pg/mL Specimen Performing Laboratory [facility]OMIC [facility]IC[facility] [address] [place] [address] * Hemoglobin A1c (06/01/2017 4:00 AM) Component Value Ref Range Hemoglobin A1C 6.5 (H) 4.0 - 6.0 % Comment: Less than 6% - Goal of therapy for Type II Diabetes Less than 7%- Goal of therapy for Type I Diabetes Less than 8%- Acceptable control for Type I or Type II Diabetes Greater than 8%- Unacceptable control; action indicated. (A [id number]) Specimen Performing Laboratory [facility]OM[facility]IC[facility] [address] [place] [address] * Lipid panel (06/01/2017 4:00 AM) Component Value Ref Range Cholesterol 138 120 - 200 mg/dL Triglycerides 180 (H) 50 - 150 mg/dL HDL cholesterol 55 40 - 60 mg/dL LDL cholesterol 72Comment: Result obtained by direct LDL mg/dL measurement Lipid panel See below interpretation Comment: Total Cholesterol (mg/dL) LDL Cholesterol (mg/dL) <200 Desirable <100 Optimal 200-239 Borderline-high 100-129 Near or above optimal >=240 High 130-159 Borderline-high 160-189 High >=190 Very high HDL Cholesterol (mg/dL) Triglycerides (mg/dL) <40 Low <150 Normal >=60 High 150-199 Borderline-high 200-499 High >=500 Very high Risk Catergories that modify LDL goals. Risk Catergories LDL goal (mg/dL) CHD and CHD risk equivalent <100 (10-year risk >20%) Multiple (2+) risk factors <130 (10-year risk=<20%) 0-1 risk factors <160 (<10-year risk) Defining levels of lipids in metabolic syndrome Triglycerides >=150 mg/dL HDL Cholesterol Men <40 mg/dL Women <50 mg/dL Non-HDL cholesterol is a second target for therapy in persons with high triglycerides (>=200 mg/dL) Specimen Performing Laboratory Plasma specimen [facility]OMIC [facility]IC[facility] [address] [place] [address] * Arterial blood gas (06/01/2017 3:34 AM) Only the most recent of 3 results within the time period is included. Component Value Ref Congressional Assistant Mayte Colón Collection site RRA O2 therapy Vent AC Respiratory rate 18 bpm Tidal volume 450.0 mL .PEEP 5 cmH2O pH, arterial 7.452 (H) 7.350 - 7.450 units pCO2, arterial 37.6 35.0 - 45.0 mmHg pO2, arterial 123.0 (H) 80.0 - 90.0 mmHg O2 saturation, arterial 99.1 95.0 - 100.0 % Base excess, arterial 2.3 mEq/L Bicarbonate 26.2 21.0 - 28.0 mEq/L O2 content 18.8 VOL% FiO2, inspired O2% 40.0 % Carboxyhemoglobin 0.5 0.0 - 1.4 % Comment: Reference Ranges: Carboxyhemoglobin Non smoker: 0.0 - 2.0% Smoker: 2.1 - 5.0% Heavy smoker: 5.1 - 9% Methemoglobin 0.3 0.0 - 1.0 % Hemoglobin, blood gas 13.5 12.0 - 16.0 g/dL pO2, A-a 121.0 mmHg Specimen Performing Laboratory Blood [facility]OM[facility] MEDIC[facility] [address] [place] [address] * Prothrombin time with INR (06/01/2017 12:55 AM) Only the most recent of 3 results within the time period is included. Component Value Ref Range Prothrombin time 12.6 12.0 - 15.0 sec INR 0.93 0.92 - 1.12 Comment: For patients on anticoagulant therapy, reference ranges below: Indication: INR Value Treatment of Venous Thrombosis, 2.0-3.0 pulmonary emboli, or prophylaxis of a venous thrombosis, or systemic emboli. High dose, high risk patients 3.0-4.5 with mechanical valves. NOTE: INR values over 3.0 are sometimes associated with gastrointestinal hemorrhage, especially values over 4.0. Specimen Performing Laboratory Blood [facility]OMIC MEDIC[facility] [address] [place] [address] * Anti Xa, unfractionated (06/01/2017 12:55 AM) Component Value Ref Range Anti Xa, unfractionated >0.10 (L)Comment: Therapeutic Range: 0.30 - 0.70 0.30 - 0.70 U/mL U/mL Specimen Performing Laboratory Blood [facility]OMIC MEDIC[facility] [address] [place] [address] * Lactic acid level (06/01/2017 12:55 AM) Only the most recent of 2 results within the time period is included. Component Value Ref Range Lactic acid 1.6 0.5 - 2.2 mmol/L Specimen Performing Laboratory Blood [facility]OMIC MEDIC[facility] [address] [place] [address] * ECG ED Preliminary Interpretation - NOT AN ORDER (06/01/2017 12:22 AM) Junie Pires DO 06/01/2017 12:22 AM ECG ED Preliminary Interpretation - Not an Order Performed by: ALF PIRES Authorized by: ALF PIRES ECG reviewed by ED Physician in the absence of a tape maker: yes Previous ECG: Previous ECG:Unavailable Interpretation: Interpretation: normal Rate: ECG rate:87 ECG rate assessment: normal Rhythm: Rhythm: sinus rhythm Ectopy: Ectopy: none QRS: QRS axis:Normal QRS intervals:Normal Conduction: Conduction: normal ST segments: ST segments:Normal T waves: T waves: normal * CRITICAL CARE (06/01/2017 12:22 AM) Junie Pires DO 06/01/2017 12:22 AM Critical Care Performed by: ALF PIRES Authorized by: ALF PIRES Critical care provider statement: Critical care time (minutes):50 Critical care was necessary to treat or prevent imminent or life-threatening deterioration of the following conditions:Respiratory failure and toxidrome Critical care was time spent personally by me on the following activities:Development of treatment plan with patient or surrogate, discussions with consultants, discussions with primary provider, evaluation of patient's response to treatment, examination of patient, interpretation of cardiac output measurements, obtaining history from patient or surrogate, ordering and performing treatments and interventions, ordering and review of laboratory studies, ordering and review of radiographic studies, pulse oximetry, re-evaluation of patient's condition, review of old charts and ventilator management * INTUBATION (06/01/2017 12:22 AM) Junie Pires DO 06/01/2017 12:22 AM Intubation Performed by: ALF PIRES Authorized by: ALF PIRES Consent: Consent obtained:Verbal Consent given by:Guardian and spouse Risks discussed:Brain injury, aspiration, bleeding, and hypoxia Alternatives discussed:No treatment and delayed treatment [place] protocol: Patient identity confirmed:Arm band and hospital-assigned identification number Pre-procedure details: Patient status:Unresponsive Induction:Etomidate Paralytics:Succinylcholine Procedure details: Preoxygenation:Nasal cannula CPR in progress: no Intubation method:Oral Technique:Video laryngoscopy Laryngoscope blade:Mac 3 Grade view:2 Difficult airway?: No Tube size (mm):7.5 Tube type:Cuffed Number of attempts:1 Ventilation between attempts: no Cricoid pressure: no Tube visualized through cords: yes Placement assessment: ETT to lip:22 Tube secured with:ETT alvarez Breath sounds:Equal Placement verification: chest rise, condensation, CXR verification, direct visualization, equal breath sounds, ETCO2 detector and tube exhalation CXR findings:ETT in proper place Post-procedure details: Patient tolerance of procedure:Tolerated well, no immediate complications * POC occult blood stool (05/31/2017 10:35 PM) Component Value Ref Range Occult blood, stool Negative Specimen Performing Laboratory Stool * XR Abdomen 1 Vw Portable (05/31/2017 10:00 PM) Specimen Performing Laboratory [facility] [address] [place] [address] Narrative EXAMINATION:XR ABDOMEN 1 VW PORTABLE CLINICAL HISTORY:NG tube placement COMPARISON:Abdominal x-ray 01/24/2013 IMPRESSION: New NG tube which terminates in the gastric body. The gastric body isn't significantly air distended. Otherwise the bowel gas pattern is nonspecific, nonobstructive. Moderate colonic stool. [facility]-[id number] Procedure Note Interface, Radiology Results Incoming - 05/31/2017 10:05 PM COMMUNITY REINVESTMENT ACT OFFICER EXAMINATION: XR ABDOMEN 1 VW PORTABLE CLINICAL HISTORY: NG tube placement COMPARISON: Abdominal x-ray 01/24/2013 IMPRESSION: New NG tube which terminates in the gastric body. The gastric body isn't significantly air distended. Otherwise the bowel gas pattern is nonspecific, nonobstructive. Moderate colonic stool. [facility]-[id number] * Type and screen (05/31/2017 9:44 PM) Component Value Ref Range ABO grouping A Rh type POS Antibody screen (gel) NEG Specimen Performing Laboratory Blood [facility]OM[facility]IC[facility] [address] [place] [address] * Urinalysis screen and microscopy, with reflex to culture (05/31/2017 9:24 PM) Only the most recent of 2 results within the time period is included. Component Value Ref Range Specimen site Clean catch Color, UA Straw Appearance, UA Clear Specific gravity, UA 1.012 1.001 - 1.035 pH, UA 6.0 5.0 - 8.5 Protein, UA Negative Negative Glucose, UA 3+ (A) Negative Ketones, UA Negative Negative Bilirubin, UA Negative Negative Blood, UA Negative Negative Nitrite, UA Negative Negative Urobilinogen, UA Negative <2.0 Leukocyte esterase, UA Negative Negative Epithelial cells, UA Few /HPF WBC, UA <1 0 - 5 /HPF RBC, UA <1 0 - 5 /HPF Bacteria, UA None seen None seen Yeast, UA None seen Yeast with pseudohyphae, None seen UA Specimen Performing Laboratory Urine [facility] [address] [place] [address] * Urine drugs of abuse screen (05/31/2017 9:24 PM) Component Value Ref Range Amphetamine screen, urine NEG Barbiturate screen, urine NEG Benzodiazepine screen, NEG urine Cocaine screen, urine NEG Methadone screen, urine NEG Opiates screen, urine POS Phencyclidine screen, NEG urine Cannabinoid screen, urine POS Comment: Drug screen minimum concentration of detectability Amphetamines 1000 ng/mL Methamphetamines 1000 ng/mL Barbiturates 300 ng/mL Benzodiazepines 300 ng/mL Cocaine 300 ng/mL Methadone 3 00 ng/mL Opiates 300 ng/mL Phencyclidine 25 ng/mL Cannabinoids 50 ng/mL Tricyclics 1000 ng/mL Negative test results indicates presumptive evidence of lack of clinically significant drug concentration in this urine specimen. Positive test results are presumptive evidence of clinically significant drug concentration in this urine specimen. Testing performed for medical purposes only. Specimen Performing Laboratory Urine [facility] [address] [place] [address] * Urine culture (05/31/2017 9:21 PM) Component Value Ref Range Urine culture SEE COMMENTComment: Bacteriuria screen negative. Specimen Performing Laboratory [facility] [address] [place] [address] * Alcohol level, blood (05/31/2017 8:45 PM) Component Value Ref Range Alcohol None Detected mg/dL Comment: Normal None Detected Legal Intoxication in [place] 80 mg/dL (0.08%) Toxic Concentration 200 mg/dL (0.2%) Potentially Fatal 350-500 mg/dL (0.35%-0.5%) Alcohol percent None Detected % Specimen Performing Laboratory Blood [facility] [address] [place] [address] * Acetaminophen level (05/31/2017 8:45 PM) Component Value Ref Range Acetaminophen level 5.2 (L) 10.0 - 20.0 ug/mL Comment: Therapeutic 10-30 ug/mL Possible Toxicity 150-200 ug/mL Probable Toxicity >200 ug/mL Specimen Performing Laboratory Blood [facility] [address] [place] [address] * Salicylate level (05/31/2017 8:45 PM) Component Value Ref Range Salicylate <1.7 mg/dL Comment: Therapeutic Range: 5 - 30 mg/dL Specimen Performing Laboratory Blood [facility] [address] [place] [address] * Thyroid stimulating hormone (05/28/2017 10:54 AM) Component Value Ref Range TSH 1.20 0.38 - 4.82 uIU/mL Specimen Performing Laboratory Plasma specimen [facility] [address] [place] [id number] * SUTURE REMOVAL (02/24/2017 2:16 PM) Narrative Anne Marie Montoya MD 02/24/20172:16 PM Suture Removal Performed by: MIRI JONES Authorized by: ANNE MARIE MONTOYA Consent: Consent obtained:Verbal Consent given by:Patient Risks discussed:Bleeding, pain and wound separation Alternatives discussed:No treatment and delayed treatment Location: Location:Upper extremity Upper extremity location:Hand Hand location:L hand Procedure details: Wound appearance:No signs of infection Number of sutures removed:2 Post-procedure details: Post-removal:Steri-Strips applied Patient tolerance of procedure:Tolerated well, no immediate complications * SUTURE REMOVAL (02/24/2017 2:16 PM) Narrative Anne Marie Montoya MD 02/24/20172:16 PM Suture Removal Performed by: MIRI JONES Authorized by: ANNE MARIE MONTOYA Consent: Consent obtained:Verbal Consent given by:Patient Risks discussed:Bleeding, pain and wound separation Alternatives discussed:No treatment and delayed treatment Location: Location:Upper extremity Upper extremity location:Hand Hand location:R hand Procedure details: Wound appearance:No signs of infection Number of sutures removed:2 Post-procedure details: Post-removal:Steri-Strips applied Patient tolerance of procedure:Tolerated well, no immediate complications * XR Chest 2 Vw (02/11/2017 1:13 PM) Specimen Performing Laboratory [facility] [address] [place] [address] Narrative EXAMINATION:XR CHEST 2 VW CLINICAL HISTORY:Z01.818 Encounter for other preprocedural examination, SHORTNESS OF BREATH COMPARISON:None. IMPRESSION: Lungs are clear Heart is slightly enlarged Degenerative changes are present throughout the bony structures without evidence of a suspicious focal lesion. [facility]-[id number] Procedure Note Hm Interface, Radiology Results Incoming - 02/11/2017 1:28 PM CDT EXAMINATION: XR CHEST 2 VW CLINICAL HISTORY: Z01.818 Encounter for other preprocedural examination, SHORTNESS OF BREATH COMPARISON: None. IMPRESSION: Lungs are clear Heart is slightly enlarged Degenerative changes are present throughout the bony structures without evidence of a suspicious focal lesion. [facility]-[id number] * XR Hand 3+ Vw Left (02/03/2017 8:26 AM) Specimen Performing Laboratory [facility] [address] [place] [address] Narrative Xrays:3 views of the right hand show normal alignment of bones and joints with no obvious fractures, dislocations, or advanced degenerative changes.Mild thumb cmc OA. * Urinalysis, automated with microscopy (09/29/2016 12:15 PM) Component Value Ref Range Color, UA Yellow Appearance, UA Slightly-Cloudy Specific gravity, UA 1.032 1.001 - 1.035 pH, UA 5.0 5.0 - 8.5 Protein, UA 1+ (A) Negative Glucose, UA Negative Negative Ketones, UA Trace (A) Negative Bilirubin, UA 1+ (A)Comment: Confirmation of results no longer Negative performed due to unavailability of reagent Blood, UA Negative Negative Nitrite, UA Negative Negative Urobilinogen, UA Negative <2.0 Leukocyte esterase, UA Small (A) Negative Epithelial cells, UA Many /HPF WBC, UA 6 (H) 0 - 5 /HPF RBC, UA 1 0 - 5 /HPF Bacteria, UA Few None seen Yeast, UA None seen Yeast with pseudohyphae, None seen UA Specimen Performing Laboratory [facility] [address] [place] [address] * MRI Knee Left Wo Contrast (09/10/2016 3:59 PM) Specimen Performing Laboratory [facility] [address] [place] [address] Narrative MRI KNEE JOINT LEFT CLINICAL INDICATION:PAIN IN LEFT KNEE TECHNIQUE:Multiplanar multisequence MR imaging of the left knee was performed without gadolinium contrast. COMPARISON:None. FINDINGS: Cruciate ligaments:Intact Menisci:There is multifocal tearing of the body and posterior horn of the medial meniscus, minimal focal radial tearing identified in the body. Additional longitudinal undersurface tearing is noted through the posterior horn of the medial meniscus with fraying of the free edge extending towards the root with additional areas of undersurface irregularity and nondisplaced tearing. No tear of the lateral meniscus is identified. Collateral ligaments:Minimal infiltration of the proximal medial collateral ligament is present without significant sprain. Lateral clavicle ligament is unremarkable. Bone marrow:There is no fracture or suspicious osseous lesion. Subchondral cystic changes are noted in the posterior lateral femur deep to chondral defect. Articular cartilage:There is thinning of the medial femorotibial articular cartilage which is mild to moderate without full-thickness defect. There is a 1.2 x 0.3 cm chondral defect involving the lateral femur at the level the posterior horn with underlying fluid extending to the cortex suggesting a chondral flap (series 6 image 22). Additional focal chondral degeneration is noted in the posterior lateral femur and near full-thickness (series 5 image 14), less than 4 mm. Patellofemoral cartilage is extensively degenerated with severe thinning. Effusion:A large joint effusion is present with mild/moderate synovitis. A lobulated Delacruz's cyst is present, the cyst 1.7 x 2.6 x 4.2 cm at maximum. Extensor mechanism:Quadriceps and patellar tendons are intact. No significant subluxation of the patella in the setting of a joint effusion. Soft tissues:There are multiple well-circumscribed T2 hyperintense fluid lesions in the lateral posterior popliteal fossa deep to the popliteus suggestive of popliteal potentially synovial or ganglion cysts, maximal extent 2.1 cm craniocaudal. IMPRESSION: 1. Complex tearing of the body and posterior horn of the medial meniscus as described. 2. Multifocal chondral degeneration with severe chondral loss of the patellofemoral articulation, a 1.2 cm potential chondral flap noted involving the lateral femoral condyle with other areas of focal degeneration and thinning as detailed. 3. Large joint effusion with synovitis and Delacruz's cyst with leaking fluid in the calf, additional nonspecific popliteal cysts noted laterally. Thank you for allowing us to participate in the care of your patient. [facility]-[id number] Procedure Note Hm Interface, Radiology Conversion - 09/10/2016 4:18 PM CDT MRI KNEE JOINT LEFT CLINICAL INDICATION: PAIN IN LEFT KNEE TECHNIQUE: Multiplanar multisequence MR imaging of the left knee was performed without gadolinium contrast. COMPARISON: None. FINDINGS: Cruciate ligaments: Intact Menisci: There is multifocal tearing of the body and posterior horn of the medial meniscus, minimal focal radial tearing identified in the body. Additional longitudinal undersurface tearing is noted through the posterior horn of the medial meniscus with fraying of the free edge extending towards the root with additional areas of undersurface irregularity and nondisplaced tearing. No tear of the lateral meniscus is identified. Collateral ligaments: Minimal infiltration of the proximal medial collateral ligament is present without significant sprain. Lateral clavicle ligament is unremarkable. Bone marrow: There is no fracture or suspicious osseous lesion. Subchondral cystic changes are noted in the posterior lateral femur deep to chondral defect. Articular cartilage: There is thinning of the medial femorotibial articular cartilage which is mild to moderate without full-thickness defect. There is a 1.2 x 0.3 cm chondral defect involving the lateral femur at the level the posterior horn with underlying fluid extending to the cortex suggesting a chondral flap (series 6 image 22). Additional focal chondral degeneration is noted in the posterior lateral femur and near full-thickness (series 5 image 14), less than 4 mm. Patellofemoral cartilage is extensively degenerated with severe thinning. Effusion: A large joint effusion is present with mild/moderate synovitis. A lobulated Delacruz's cyst is present, the cyst 1.7 x 2.6 x 4.2 cm at maximum. Extensor mechanism: Quadriceps and patellar tendons are intact. No significant subluxation of the patella in the setting of a joint effusion. Soft tissues: There are multiple well-circumscribed T2 hyperintense fluid lesions in the lateral posterior popliteal fossa deep to the popliteus suggestive of popliteal potentially synovial or ganglion cysts, maximal extent 2.1 cm craniocaudal. IMPRESSION: 1. Complex tearing of the body and posterior horn of the medial meniscus as described. 2. Multifocal chondral degeneration with severe chondral loss of the patellofemoral articulation, a 1.2 cm potential chondral flap noted involving the lateral femoral condyle with other areas of focal degeneration and thinning as detailed. 3. Large joint effusion with synovitis and Delacruz's cyst with leaking fluid in the calf, additional nonspecific popliteal cysts noted laterally. Thank you for allowing us to participate in the care of your patient. [facility]-[id number] * XR Knee 3 Vw Left (09/08/2016 10:36 AM) Specimen Performing Laboratory [facility] [id number] [place] [address] Narrative Lateral x-ray left knee shows mild patellofemoral arthritis. Standing AP and PA x-rays show mild narrowing in the medial compartment of the left knee after 09/03/2016 Insurance Payer Benefit Subscriber ID Type Phone Address Plan / Group BCBS ANTH xxxxxxxxxxxx PPO BLUE CROSS MEDICARE MEDICARE xxxxxxxxxx Medicare [place], [place] PART A AND B
--- OUTSIDE RECORDS SUMMARY | 2017-09-04 10:56 | XMS REPORT ---
Author Author [facility] Address Unknown Phone Unavailable Care Team Providers Care Boiler Mechanic Name Role Phone TAHIR IVEY Unavailable Unavailable Problems This patient has no known problems. Allergies, Adverse Reactions, Alerts This patient has no known allergies or adverse reactions. Medications This patient has no known medications. Results Test Description Test Time Test Comments Text Results Atomic Results Result Comments CHEST 2 VIEWS [place] [address] Patient Name: YRN URIAS MR #: [id number] : 1950 Age/Sex: 66/F Req #: [id number] Adm Physician: Ordered by: TAHIR IVEY MD Report #: [id number] Location: OR Room/Bed: Procedure: [id number] DX/CHEST 2 VIEWS Exam Date: 09/01/17 Exam Time: 1700 REPORT STATUS: Signed PROCEDURE: Frontal and lateral views of the chest. COMPARISON: [facility], , CHEST 2 VIEWS, 2015, 10:40. INDICATIONS: PRE-OP FINDINGS: Lines/tubes: None. Lungs: The lungs are well inflated and grossly clear. There is no evidence of pneumonia or pulmonary edema. Pleura: There is no pleural effusion or pneumothorax. Heart and mediastinum: The heart and the mediastinum are normal. Bones: No acute bony abnormality. IMPRESSION: 1. No acute cardiopulmonary abnormalities. Terrance Chacko M.D. Dictated by: Terrance Chacko M.D. on 09/01/2017 at 17:13 Electronically approved by: Terrance Chacko M.D. on 2017 at 17:13 Dictated By: TERRANCE CHACKO MD 12 Transcribed By: FAM on 1712 COPY TO: TAHIR IVEY MD
--- NOTE | 2017-09-04 13:59 | Operative Report ---
DATE OF PROCEDURE: September 04, 2017 PREOPERATIVE DIAGNOSIS: 1. Interstitial cystitis. 2. Vulvar cysts. POSTOPERATIVE DIAGNOSIS: 1. Interstitial cystitis. 2. Vulvar cysts. OPERATION PERFORMED: 1. Cystoscopy. 2. Hydraulic distention of the bladder. 3. Excision of vulvar cysts. ANESTHESIA: General. INDICATIONS: This patient is a 66-year-old white female with a long history of interstitial cystitis. It has now been almost 2 years since her last hydraulic distention, and she requests another one for relief of pain. She has also noticed 2 tiny painful cysts adjacent to each other in the right side of her vulva. When I examined them in my office, they were very painful and she requests that these be removed. For further details, please refer to the history and physical. The procedure was done in the following fashion. DESCRIPTION OF PROCEDURE: The patient was taken to the operating room and placed under general anesthesia and dressed and draped with Hibiclens in the usual fashion. The patient had a small to moderate rectocele present. The 26-Vietnamese Olympus cystoscope was inserted, and clear efflux was seen from both ureteral orifices. No bladder tumors were seen. The bladder was mildly trabeculated. The bladder was hydraulically distended 3 times from between 700 to 800 mL. The glomerulations of interstitial cystitis were identified. After 3 hydraulic distentions of the bladder, the bladder was emptied and the cystoscope withdrawn. I then made a curvilinear incision around the 2 cysts with a scalpel. The cysts were then sharply excised away with the Metzenbaum dissection using traction, countertraction and Adson forceps. Once the cysts were excised, the wound was fulgurated with electrocautery with the coagulation set at 30. The skin was then closed with interrupted 3-0 chromic. The patient tolerated procedure well and left the operating room in good condition. She will have a return appointment to see me again in 2 weeks. She will go home on Bactrim DS 1 p.o. twice daily, number 20. Job#: [id number]
== END | disposition home or self-care (01) ==
LOC: OR 10:54
PROVIDERS: ATTEND Urology
DX: N30.10 Interstitial cystitis (chronic) without hematuria (principal); N90.7 Vulvar cyst; N81.6 Rectocele; N32.89 Other specified disorders of bladder; K64.4 Residual hemorrhoidal skin tags; E11.9 Type 2 diabetes mellitus without complications; I47.1 Supraventricular tachycardia; I10 Essential (primary) hypertension; K57.32 Diverticulitis of large intestine without perforation or abscess without bleeding; K21.9 Gastro-esophageal reflux disease without esophagitis; M51.37 Other intervertebral disc degeneration, lumbosacral region; M48.00 Spinal stenosis, site unspecified; A60.9 Anogenital herpesviral infection, unspecified; K44.9 Diaphragmatic hernia without obstruction or gangrene; E66.9 Obesity, unspecified; F41.9 Anxiety disorder, unspecified; Z01.810 Encounter for preprocedural cardiovascular examination; Z01.812 Encounter for preprocedural laboratory examination; Z01.818 Encounter for other preprocedural examination; Z68.34 Body mass index [BMI] 34.0-34.9, adult; Z96.651 Presence of right artificial knee joint; Z85.42 Personal history of malignant neoplasm of other parts of uterus; Z87.01 Personal history of pneumonia (recurrent); Z87.891 Personal history of nicotine dependence
CPT/HCPCS: 11420; 36415 ×2; 52260; 71046; 80053; 82948; 85025; 85610; 85730; 88304; 93005 ×2; J1100; J2001; J2250; J2270; J2405; J7050

== ENCOUNTER → 2022-07-08 | Outpatient (CLI) | payer BC, MEDICARE ==
[~2022-07-08] MED LIST changes: -DEXAMETHASONE SOD PHOS INJ 4 MG/ML VIAL ONE; -FAMOTIDINE 20 MG/2 ML VIAL IV ONE; -FENTANYL CITRATE/PF 100MCG/2 ML INJ ONE; +JARDIANCE25 MG PO; -LIDOCAINE HCL 2% LOCAL INJ 5 ML SDV VIAL INJ ONE; -MIDAZOLAM HCL 2 MG/2 ML VIAL ONE; +MINIPRESS2 MG PO; -MORPHINE SULFATE 5 MG/ML VIAL ONE; +MYRBETRIQ50 MG PO; -NEOMYCIN/POLYMYX/BACITR OINT 0.9 GM PKT ONE; +NEURONTIN400 MG PO; -NITROGLYCERIN 0.4 MG SUBL ONE; +NP THYROID60 MG PO; -ONDANSETRON HCL INJ 2 MG/ML VIAL ONE; +PERCOCET 10-321 EACH PO; -PROPOFOL IV EMULSION 10 MG/ML 20 ML VIAL ONE; +PROPRANOLOL HCL40 MG PO; +PROZAC40 MG PO; -SEVOFLURANE INHAL SOLN 250 ML PEN BTL ONE; -SODIUM CHLORIDE 0.9% IV STA; -SULFAMETHOXAZOLE IV STA; -TRIMETHOPRIM IV STA
== END | disposition home or self-care (01) ==
LOC: OR 07:30 → RAD 07:30 → EDSTATUS 11:00
PROVIDERS: ATTEND Otolaryngology Otolaryngology/Facial Plastic Surgery
DX: R49.0 Dysphonia (principal); Z53.8 Procedure and treatment not carried out for other reasons
CPT/HCPCS: 36415; 82948